=== PATIENT | female | born 1990 | race Caucasian/White ===

== ENCOUNTER 2019-03-04 21:25 | Emergency (ER) | payer SELFPAY ==
[~2019-03-04] VITALS: Ht 167.6 cm; Wt 64.0 kg
[2019-03-04] MEDS ORDERED: SODIUM CHLORIDE 0.9% 1,000 ML IV ONE (22:00)
[2019-03-04] MEDS ORDERED: ONDANSETRON HCL 4MG/2ML INJ IV ONE (22:00)
[2019-03-04 23:09] VITALS: BP 112/73
== END 2019-03-04 23:10 | disposition home or self-care (01) ==
LOC: ER 21:25
DX: F10.129 Alcohol abuse with intoxication, unspecified (principal); Y90.9 Presence of alcohol in blood, level not specified
CPT/HCPCS: 96374; 99283; J2405; J7030